=== PATIENT | female | born 1955 | race Caucasian/White ===

== ENCOUNTER → 2016-07-03 | Outpatient (CLI) | payer MEDICAID ==
[2016-07-03 10:54] LABS: Basophils # (auto) 0.1 uL; Basophils % (auto) 1.2 % (0.0-2.0); Eosinophils # (auto) 0.1 uL; Eosinophils % (auto) 3.1 % (0.0-7.0); Hematocrit 40.8 % (36.0-46.0); Hemoglobin 13.7 g/dL (12.2-16.2); Lymphocytes # (auto) 1.7 uL; Lymphocytes % (auto) 37.6 % (10.0-50.0); Mean Corpuscular Hemoglobin 32.3 pg (28.0-32.0); Mean Corpuscular Hgb Conc. 33.6 g/dL (32.0-36.0); Mean Corpuscular Volume 96.1 fL (80.0-100.0); Mean Platelet Volume 9.6 fL (7.4-10.4); Monocytes # (auto) 0.6 uL; Monocytes % (auto) 13.9 % (0.0-12.0); Neutrophils % (auto) 44.2 % (37.0-80.0); Platelet Count (auto) 246 10^3/uL (140-450); Red Cell Distribution Width 13.3 % (11.6-16.0); White Blood Cell 4.6 10^3/uL (4.4-10.8)
[2016-07-03 11:26] LABS: Albumin 3.5 g/dL (3.4-5.0); BUN/Creatinine Ratio 20.9; Bilirubin, Total 0.6 mg/dL (0.2-1.0); Calcium 9.2 mg/dL (8.5-10.1); Potassium 4.5 mmol/L (3.5-5.1); Total Protein 7.4 g/dL (6.4-8.2)
== END | disposition home or self-care (01) ==
LOC: LAB 10:13
DX: I10 Essential (primary) hypertension (principal); M25.50 Pain in unspecified joint; D64.9 Anemia, unspecified; M06.9 Rheumatoid arthritis, unspecified; Z79.899 Other long term (current) drug therapy
CPT/HCPCS: 36415; 80053; 85025; 85652; 86141

== ENCOUNTER → 2016-11-27 | Outpatient (CLI) | payer MEDICAID ==
[2016-11-27 14:39] LABS: Basophils # (auto) 0 uL; Basophils % (auto) 0.7 % (0.0-2.0); CONDITION Y; Eosinophils # (auto) 0.1 uL; Hematocrit 40.9 % (36.0-46.0); Hemoglobin 13.8 g/dL (12.2-16.2); Lymphocytes # (auto) 1.2 uL; Lymphocytes % (auto) 21.7 % (10.0-50.0); Mean Corpuscular Hemoglobin 32.4 pg (28.0-32.0); Mean Corpuscular Hgb Conc. 33.8 g/dL (32.0-36.0); Mean Corpuscular Volume 95.7 fL (80.0-100.0); Mean Platelet Volume 8.3 fL (7.4-10.4); Monocytes # (auto) 0.5 uL; Monocytes % (auto) 9.2 % (0.0-12.0); Neutrophils # (auto) 3.8 uL; Neutrophils % (auto) 66.4 % (37.0-80.0); Platelet Count (auto) 341 10^3/uL (140-450); Red Cell Distribution Width 13.4 % (11.6-16.0); White Blood Cell 5.7 10^3/uL (4.4-10.8)
[2016-11-27 15:13] LABS: Albumin 3.6 g/dL (3.4-5.0); BUN/Creatinine Ratio 21.5; Bilirubin, Total 0.6 mg/dL (0.2-1.0); Calcium 9.1 mg/dL (8.5-10.1); Potassium 4.2 mmol/L (3.5-5.1); Total Protein 7.7 g/dL (6.4-8.2)
== END | disposition home or self-care (01) ==
LOC: LAB 14:26
DX: I10 Essential (primary) hypertension (principal); M06.9 Rheumatoid arthritis, unspecified; M25.50 Pain in unspecified joint; D64.9 Anemia, unspecified; Z79.899 Other long term (current) drug therapy
CPT/HCPCS: 36415; 80053; 85025; 85652; 86141

== ENCOUNTER → 2017-04-12 | Outpatient (CLI) | payer MEDICAID ==
[2017-04-12 12:12] LABS: Basophils # (auto) 0 uL; Basophils % (auto) 0.7 % (0.0-2.0); Eosinophils # (auto) 0.1 uL; Eosinophils % (auto) 2.3 % (0.0-7.0); Hematocrit 45.5 % (36.0-46.0); Hemoglobin 14.9 g/dL (12.2-16.2); Lymphocytes % (auto) 15.1 % (10.0-50.0); Mean Corpuscular Hemoglobin 31.8 pg (28.0-32.0); Mean Corpuscular Hgb Conc. 32.7 g/dL (32.0-36.0); Mean Corpuscular Volume 97.1 fL (80.0-100.0); Mean Platelet Volume 8.4 fL (6.9-10.8); Monocytes # (auto) 0.7 uL; Monocytes % (auto) 10.8 % (0.0-12.0); Neutrophils # (auto) 4.5 uL; Neutrophils % (auto) 71.1 % (37.0-80.0); Nucleated Red Blood Cells % 0.1 %; Platelet Count (auto) 298 10^3/uL (140-450); Red Cell Distribution Width 13.6 % (11.8-14.3); White Blood Cell 6.4 10^3/uL (4.4-10.8)
[2017-04-12 12:25] LABS: Albumin 3.7 g/dL (3.4-5.0); BUN/Creatinine Ratio 22.8; Bilirubin, Total 0.7 mg/dL (0.2-1.0); Calcium 8.9 mg/dL (8.5-10.1); Potassium 4.4 mmol/L (3.5-5.1); Total Protein 7.9 g/dL (6.4-8.2)
[2017-04-12 13:04] LABS: RBC Morphology Normal
[2017-04-12 13:05] LABS: Large Platelets FEW; Platelet Estimate Adequa
== END | disposition home or self-care (01) ==
LOC: LAB 11:46
DX: I10 Essential (primary) hypertension (principal); M06.9 Rheumatoid arthritis, unspecified; D64.9 Anemia, unspecified
CPT/HCPCS: 36415; 80053; 85025; 85652; 86141

== ENCOUNTER → 2017-10-29 | Outpatient (CLI) | payer MEDICAID ==
[2017-10-29 12:25] LABS: Basophils # (auto) 0.1 uL; Basophils % (auto) 0.9 % (0.0-2.0); Eosinophils # (auto) 0.1 uL; Hematocrit 44.3 % (36.0-46.0); Hemoglobin 14.5 g/dL (12.2-16.2); Lymphocytes # (auto) 0.9 uL; Lymphocytes % (auto) 15.4 % (10.0-50.0); Mean Corpuscular Hemoglobin 31.8 pg (28.0-32.0); Mean Corpuscular Hgb Conc. 32.8 g/dL (32.0-36.0); Mean Corpuscular Volume 96.9 fL (80.0-100.0); Monocytes # (auto) 0.6 uL; Monocytes % (auto) 10.1 % (0.0-12.0); Neutrophils # (auto) 4.3 uL; Neutrophils % (auto) 71.6 % (37.0-80.0); Nucleated Red Blood Cells % 0.1 %; Platelet Count (auto) 322 10^3/uL (140-450); Red Blood Cells 4.57 10^6/uL (4.0-5.20); Red Cell Distribution Width 13.8 % (11.8-14.3)
[2017-10-29 13:05] LABS: Albumin 3.6 g/dL (3.4-5.0); BUN/Creatinine Ratio 18.9; Bilirubin, Total 0.6 mg/dL (0.2-1.0); Calcium 9.3 mg/dL (8.5-10.1); Potassium 4.5 mmol/L (3.5-5.1); Total Protein 7.8 g/dL (6.4-8.2)
== END | disposition home or self-care (01) ==
LOC: LAB 11:36
PROVIDERS: ATTEND Physician Assistant
DX: I12.9 Hypertensive chronic kidney disease with stage 1 through stage 4 chronic kidney disease, or unspecified chronic kidney disease (principal); N18.2 Chronic kidney disease, stage 2 (mild); M19.90 Unspecified osteoarthritis, unspecified site; M05.40 Rheumatoid myopathy with rheumatoid arthritis of unspecified site; M06.9 Rheumatoid arthritis, unspecified; R63.5 Abnormal weight gain; G25.0 Essential tremor; Z79.899 Other long term (current) drug therapy
CPT/HCPCS: 36415; 80053; 80061; 83036; 84443; 85025

== ENCOUNTER → 2018-02-19 | Outpatient (CLI) | payer MEDICAID ==
[2018-02-19 16:35] LABS: Basophils # (auto) 0 uL; Basophils % (auto) 0.7 % (0.0-2.0); Eosinophils # (auto) 0.1 uL; Eosinophils % (auto) 2.1 % (0.0-7.0); Hematocrit 47.1 % (36.0-46.0); Hemoglobin 15.7 g/dL (12.2-16.2); Lymphocytes # (auto) 0.6 uL; Lymphocytes % (auto) 11.2 % (10.0-50.0); Mean Corpuscular Hgb Conc. 33.4 g/dL (32.0-36.0); Monocytes # (auto) 0.6 uL; Monocytes % (auto) 10.9 % (0.0-12.0); Neutrophils # (auto) 4.2 uL; Neutrophils % (auto) 75.1 % (37.0-80.0); Nucleated Red Blood Cells % 0.1 %; Platelet Count (auto) 307 10^3/uL (140-450); Red Blood Cells 4.76 10^6/uL (4.0-5.20); Red Cell Distribution Width 14.3 % (11.8-14.3); Urine Blood Negative /uL (Negative); Urine Specific Gravity 1.028 (1.001-1.035); White Blood Cell 5.6 10^3/uL (4.4-10.8)
== END | disposition home or self-care (01) ==
LOC: Rad HDHVI 14:55
PROVIDERS: ATTEND Internal Medicine Cardiovascular Disease
DX: I10 Essential (primary) hypertension (principal); J44.9 Chronic obstructive pulmonary disease, unspecified; E78.5 Hyperlipidemia, unspecified; K74.1 Hepatic sclerosis; E03.9 Hypothyroidism, unspecified; E55.9 Vitamin D deficiency, unspecified; E11.9 Type 2 diabetes mellitus without complications; N39.0 Urinary tract infection, site not specified
CPT/HCPCS: 36415; 81003; 82306; 83036; 85025; 93306

== ENCOUNTER → 2018-02-24 | Outpatient (CLI) | payer MEDICAID ==
[~2018-02-24] VITALS: Ht 160 cm; Wt 125.2 kg
[~2018-02-24] MED LIST: ADENOSINE 105 MG in GIVE UN-DILUTED 0 ML IV ONE; ADENOSINE 90 MG/30 ML INJ IV ONE
== END | disposition home or self-care (01) ==
LOC: Rad HDHVI 10:06
PROVIDERS: ATTEND Internal Medicine Cardiovascular Disease
DX: I10 Essential (primary) hypertension (principal); E78.00 Pure hypercholesterolemia, unspecified
CPT/HCPCS: 78452; 93005; 96374; 96375; A9500; J0153

== ENCOUNTER → 2018-04-03 | Outpatient (CLI) | payer MEDICAID | END | disposition home or self-care (01) | LOC: LAB 13:57 | PROVIDERS: ATTEND Internal Medicine Cardiovascular Disease | DX: E03.9 Hypothyroidism, unspecified (principal) | CPT/HCPCS: 36415; 84439; 84443 ==

== ENCOUNTER → 2018-07-22 | Outpatient (CLI) | payer MEDICAID | END | disposition home or self-care (01) | LOC: LAB 15:15 | PROVIDERS: ATTEND Internal Medicine Cardiovascular Disease | DX: R94.4 Abnormal results of kidney function studies (principal) | CPT/HCPCS: 36415; 82565 ==

== ENCOUNTER → 2018-07-23 | Outpatient (CLI) | payer MEDICAID ==
[~2018-07-23] MED LIST changes: -ADENOSINE 105 MG in GIVE UN-DILUTED 0 ML IV ONE; -ADENOSINE 90 MG/30 ML INJ IV ONE; +IOHEXOL 350 MG/ML 100ML IJ ONE
[2018-07-23 15:23] VITALS: BP 127/80
--- NOTE | 2018-07-23 15:23 | NUR ---
CHF PT ARRIVED TO THE CHF CLINIC FOR CT OF THE ABDOMEN. PT ALERT AND ORIENTED X 3 . O DISTRESS, VITAL SIGNS OBTAINED
--- NOTE | 2018-07-23 15:35 | NUR ---
IV insertion IV access obtained, via clean sterile technique by inserting 20 gauge catheter at after attempt(s). IV secured properly. No trauma to site. Patient tolerated procedure well.
--- NOTE | 2018-07-23 15:40 | NUR ---
IV removal IV DC'd with sterile technique, catheter fully intact. Pressure dressing applied to site. Patient tolerated procedure well. Discharged with aftercare instructions per MD. NOTE:
[2018-07-23 15:45] VITALS: BP 142/77
--- NOTE | 2018-07-23 15:45 | NUR ---
Discharge Instructions See e-MAR for any mediations given with this visit. Patient education given on disease process. Patient verbalized understanding. Previous labs reviewed. Patient discharged in stable condition with after care instructions and follow up appointment.
== END | disposition home or self-care (01) ==
LOC: Rad HDHVI 15:17
PROVIDERS: ATTEND Internal Medicine Cardiovascular Disease
DX: R10.9 Unspecified abdominal pain (principal)
CPT/HCPCS: 74177; G0463; Q9967

== ENCOUNTER → 2018-10-10 | Outpatient (CLI) | payer MEDICAID ==
[2018-10-10 12:36] LABS: Basophils # (auto) 0 uL; Basophils % (auto) 0.8 % (0.0-2.0); Eosinophils # (auto) 0.2 uL; Hematocrit 44.7 % (36.0-46.0); Hemoglobin 14.7 g/dL (12.2-16.2); Lymphocytes # (auto) 0.8 uL; Lymphocytes % (auto) 16.2 % (10.0-50.0); Mean Corpuscular Hemoglobin 32.4 pg (28.0-32.0); Mean Corpuscular Hgb Conc. 32.8 g/dL (32.0-36.0); Mean Corpuscular Volume 98.7 fL (80.0-100.0); Monocytes # (auto) 0.6 uL; Monocytes % (auto) 11.3 % (0.0-12.0); Neutrophils # (auto) 3.6 uL; Neutrophils % (auto) 68.7 % (37.0-80.0); Platelet Count (auto) 305 10^3/uL (140-450); Red Blood Cells 4.53 10^6/uL (4.0-5.20); Red Cell Distribution Width 13.1 % (11.8-14.3); White Blood Cell 5.3 10^3/uL (4.4-10.8)
[2018-10-10 13:50] LABS: Potassium 4.6 mmol/L (3.5-5.1)
[2018-10-10 14:09] LABS: Albumin 3.4 g/dL (3.4-5.0); BUN/Creatinine Ratio 24.5; Bilirubin, Total 0.5 mg/dL (0.2-1.0); Calcium 9.2 mg/dL (8.5-10.1); Total Protein 7.3 g/dL (6.4-8.2)
== END | disposition home or self-care (01) ==
LOC: LAB 12:08
PROVIDERS: ATTEND Physician Assistant
DX: I12.9 Hypertensive chronic kidney disease with stage 1 through stage 4 chronic kidney disease, or unspecified chronic kidney disease (principal); E11.22 Type 2 diabetes mellitus with diabetic chronic kidney disease; N18.2 Chronic kidney disease, stage 2 (mild); M06.9 Rheumatoid arthritis, unspecified; E78.00 Pure hypercholesterolemia, unspecified
CPT/HCPCS: 36415; 80053; 80061; 85025

== ENCOUNTER → 2018-11-05 | Outpatient (CLI) | payer MEDICAID | END | disposition home or self-care (01) | LOC: LAB 10:34 | PROVIDERS: ATTEND Internal Medicine Cardiovascular Disease | DX: E11.9 Type 2 diabetes mellitus without complications (principal) | CPT/HCPCS: 36415; 83036 ==

== ENCOUNTER 2019-03-13 14:37 | Inpatient (IN) | payer MEDICARE, MEDICAID ==
[~2019-03-13] VITALS: Ht 160 cm; Wt 117.8 kg
[2019-03-13] MEDS ORDERED: HYDROcodone-ACET 5/325MG TAB PO ONE (16:00)
[2019-03-13] MEDS ORDERED: SODIUM CHLORIDE 0.9% 1,000 ML IVB ONE (17:11)
[2019-03-13] MEDS ORDERED: cefTRIAXone 1GM/50ML D5W 50 ML IV ONE (17:15)
[2019-03-13 18:10] LABS: Albumin 3.4 g/dL (3.4-5.0); Magnesium 1.9 mg/dL (1.6-2.6)
[2019-03-13] MEDS ORDERED: ACETAMINOPHEN 325 MG TAB PO ONE (18:15)
[2019-03-13 18:20] LABS: Hematocrit 44.6 % (36.0-46.0); Hemoglobin 14.6 g/dL (12.2-16.2); Mean Corpuscular Hemoglobin 32.3 pg (28.0-32.0); Mean Corpuscular Hgb Conc. 32.7 g/dL (32.0-36.0); Mean Corpuscular Volume 98.8 fL (80.0-100.0); Platelet Count (auto) 294 10^3/uL (140-450); Red Blood Cells 4.51 10^6/uL (4.0-5.20); Red Cell Distribution Width 13.3 % (11.8-14.3); White Blood Cell 18.1 10^3/uL (4.4-10.8)
[2019-03-13 18:22] LABS: BUN/Creatinine Ratio 20.6; Basophils % (manual) 0 (0.0-2.0); Bilirubin, Total 0.6 mg/dL (0.2-1.0); Blast Cells 0; Eosinophils % (manual) 0 (0-7); Metamyelocytes % 0; Myelocytes % 0; Promyelocytes % 0; Reactive Lymphocytes 0; Total Protein 7.6 g/dL (6.4-8.2)
[2019-03-13 18:30] LABS: Band Neutrophils % (manual) 6; Lymphocytes % (manual) 1 (10.0-50.0); Monocytes % (manual) 4 (0-12)
[2019-03-13] MEDS ORDERED: DEXTROSE (50%) 50ML SYRG IV PRN (22:15)
[2019-03-13] MEDS ORDERED: PATIENTS OWN MEDICATION TD SCH (22:15)
[2019-03-13] MEDS ORDERED: FUROSEMIDE 40 MG/4 ML VIAL IV ONE (22:15)
[2019-03-13] MEDS ORDERED: POTASSIUM CHL 20 Meq TABLET PO ONE (22:15)
[2019-03-13] MEDS: CLINDAMYCIN 600MG IV 50 ML IV SCH (22:28)
[2019-03-13] MEDS: TOLTERODINE TARTRATE 1 MG TAB PO SCH (22:45)
[2019-03-13] MEDS: LEVOFLOXACIN 500MG 100 ML IV SCH (22:46)
[2019-03-14] VITALS (7 sets, daily range): BP systolic 103–140; BP diastolic 57–74
--- NOTE | 2019-03-14 00:08 | NUR ---
MS admit from ER KENAN FRANKLIN admitted to tele/MS after SBAR received. Patient oriented to Melania Bowers, primary RN, unit, room, bed, and unit policies regarding patient care and visiting hours. Patient weighed by bedscale and encouraged to call if they need something. All questions and concerns addressed, patient verbalized understanding.
[2019-03-14] MEDS: traZODone HCL 50 MG TAB PO PRN ×2 (01:36→21:43)
[2019-03-14] MEDS: HYDROcodone-ACET 5/325MG TAB PO PRN ×2 (01:36→15:04)
[2019-03-14] MEDS: CLINDAMYCIN 600MG IV 50 ML IV SCH ×3 (06:27→21:43)
[2019-03-14] MEDS: ACCU-CHEK COMFORT CURVE STRIP VI SCH ×3 (06:28→21:51)
[2019-03-14] MEDS: InsuLIN REG 1unit/0.01ml Soln (100units/ml) SC SCH ×3 (06:32→21:50)
[2019-03-14] MEDS ORDERED: PATIENTS OWN MEDICATION PO SCH (10:00)
[2019-03-14] MEDS: LEVOFLOXACIN 500MG 100 ML IV SCH (10:40)
[2019-03-14] MEDS: FOLIC ACID 1 MG TAB PO SCH (10:40)
[2019-03-14] MEDS: [UNRECOGNIZED DRUG - OTHER] PO SCH (11:12)
[2019-03-14] MEDS: XELJANZ 5 MG PO SCH ×2 (11:13→21:38)
[2019-03-14] MEDS: TOLTERODINE TARTRATE 1 MG TAB PO SCH ×2 (11:15→21:41)
[2019-03-14] MEDS: PANTOPRAZOLE 40 MG TAB PO SCH (11:16)
[2019-03-14] MEDS: metFORMIN HYDROCHLORIDE 500 MG TAB PO SCH (11:16)
[2019-03-14] MEDS: BENAZEPRIL HCL 10 MG TAB PO SCH ×2 (11:16→21:37)
[2019-03-14] MEDS ORDERED: PITA4TAB PO (15:22)
[2019-03-14] MEDS ORDERED: TOFA5TAB PO (15:22)
[2019-03-14] MEDS ORDERED: MILN50TA PO (15:22)
[2019-03-14] MEDS ORDERED: ESCI20TA PO (15:22)
[2019-03-14] MEDS ORDERED: LEVO125T7 PO (15:22)
--- NOTE | 2019-03-14 19:30 | NUR ---
OPENING SHIFT NOTE RECEIVED PATIENT REPORT FROM DAY SHIFT RN. PATIENT SITTING UP IN BED WITH FAMILY AT BEDSIDE. PATIENT IS A/0 X4. NO S/S OF DISTRESS OR SOB. NO PAIN NOTED AT THIS TIME. PATIENT STATED SHE DOES NOT AMBULATE. SHE IS ABLE TO STAND WITH ASSISTANCE. UPDATED PATIENT ON POC, VERBALIZED UNDERSTANDING. BED LOCKED IN LOWEST POSITION, SIDERAILS UP X2, CALL LIGHT WITHIN REACH. WILL CONTINUE TO MONITOR Q1H AND PRN.
[2019-03-14] MEDS: PRAMIPEXOLE DIHYDROCHLORIDE MO 0.25 MG TAB PO SCH (21:41)
[2019-03-15] MEDS: traZODone HCL 50 MG TAB PO PRN ×2 (00:06→23:12)
[2019-03-15] MEDS: HYDROcodone-ACET 5/325MG TAB PO PRN ×2 (00:07→23:12)
[2019-03-15 05:46] VITALS: BP 111/69
[2019-03-15] MEDS: CLINDAMYCIN 600MG IV 50 ML IV SCH ×3 (06:18→22:55)
[2019-03-15] MEDS: ACCU-CHEK COMFORT CURVE STRIP VI SCH ×4 (06:29→22:00)
[2019-03-15] MEDS: InsuLIN REG 1unit/0.01ml Soln (100units/ml) SC SCH ×4 (06:30→22:00)
[2019-03-15 09:00] VITALS: BP 119/67
[2019-03-15] MEDS: XELJANZ 5 MG PO SCH ×2 (10:32→22:56)
[2019-03-15] MEDS: [UNRECOGNIZED DRUG - OTHER] PO SCH (10:33)
[2019-03-15] MEDS: CITALOPRAM HYDROBR 20 MG TAB PO SCH (10:33)
[2019-03-15] MEDS: LEVOFLOXACIN 500MG 100 ML IV SCH (10:33)
[2019-03-15] MEDS: FOLIC ACID 1 MG TAB PO SCH (10:33)
[2019-03-15] MEDS: TOLTERODINE TARTRATE 1 MG TAB PO SCH ×2 (10:34→22:54)
[2019-03-15] MEDS: metFORMIN HYDROCHLORIDE 500 MG TAB PO SCH (10:34)
[2019-03-15] MEDS: PANTOPRAZOLE 40 MG TAB PO SCH (10:34)
[2019-03-15] MEDS: BENAZEPRIL HCL 10 MG TAB PO SCH ×2 (10:40→22:00)
[2019-03-15 13:00] VITALS: BP 109/67
[2019-03-15 17:00] VITALS: BP 119/70
[2019-03-15 20:00] VITALS: BP 114/60
[2019-03-15 22:00] VITALS: BP 114/60
[2019-03-15] MEDS: PRAMIPEXOLE DIHYDROCHLORIDE MO 0.25 MG TAB PO SCH (22:54)
[2019-03-16 05:52] VITALS: BP 118/52
[2019-03-16] MEDS: CLINDAMYCIN 600MG IV 50 ML IV SCH ×3 (06:32→22:17)
[2019-03-16] MEDS: ACCU-CHEK COMFORT CURVE STRIP VI SCH ×4 (06:39→22:00)
[2019-03-16] MEDS: InsuLIN REG 1unit/0.01ml Soln (100units/ml) SC SCH ×4 (06:39→22:00)
[2019-03-16 09:00] VITALS: BP 126/61
--- NOTE | 2019-03-16 09:07 | NUR ---
PT SEEN BY DR. MIRANDA PER DR. MIRANDA HE WILL DISCHARGE THE PT WITH ORAL ANTIBIOTIC, PT IS AWARE.
[2019-03-16] MEDS: [UNRECOGNIZED DRUG - OTHER] PO SCH (10:00)
[2019-03-16] MEDS: XELJANZ 5 MG PO SCH ×2 (10:00→22:19)
[2019-03-16] MEDS: FOLIC ACID 1 MG TAB PO SCH (10:02)
[2019-03-16] MEDS: CITALOPRAM HYDROBR 20 MG TAB PO SCH (10:02)
[2019-03-16] MEDS: LEVOFLOXACIN 500MG 100 ML IV SCH (10:02)
[2019-03-16] MEDS: TOLTERODINE TARTRATE 1 MG TAB PO SCH ×2 (10:03→22:00)
[2019-03-16] MEDS: metFORMIN HYDROCHLORIDE 500 MG TAB PO SCH (10:03)
[2019-03-16] MEDS: PANTOPRAZOLE 40 MG TAB PO SCH (10:03)
[2019-03-16] MEDS: BENAZEPRIL HCL 10 MG TAB PO SCH ×2 (10:04→22:00)
[2019-03-16 13:00] VITALS: BP 114/69
[2019-03-16] MEDS: HYDROcodone-ACET 5/325MG TAB PO PRN ×2 (13:30→22:37)
--- NOTE | 2019-03-16 14:42 | NUR ---
DR. MIRANDA NOTIFIED, PT IS ASKING IF SHE IS GOING HOME TODAY, NO ORDER RECEIVED, WAITING FOR CALL BACK.
[2019-03-16 17:00] VITALS: BP 113/68
--- NOTE | 2019-03-16 18:04 | NUR ---
DR. MIRANDA ORDERED TO HOLD DISCHARGE. PT MADE AWARE.
--- NOTE | 2019-03-16 19:45 | NUR ---
Opening Shift Note Assumed care of patient, awake and alert, sitting on wheelchair, visiting. No S/S of distress/SOB or pain. Instructed on POC and to call for assistance PRN, will continue to monitor for changes Q1hr and PRN.
[2019-03-16 22:00] VITALS: BP 116/62
[2019-03-16] MEDS: PRAMIPEXOLE DIHYDROCHLORIDE MO 0.25 MG TAB PO SCH (22:22)
[2019-03-16] MEDS: traZODone HCL 50 MG TAB PO PRN (22:37)
--- NOTE | 2019-03-17 02:00 | NUR ---
Rounds Patient sleeping, respirations even and unlabored on room air. No S/S of distress/SOB or pain. Will continue to monitor changes q1hr and PRN. Call light within reach, in lowest locked position.
--- NOTE | 2019-03-17 02:34 | NUR ---
Rounds Patient awake and alert, assisted patient with bedpan, pt voiding clear yellow urine. Skin care provided to perianal area, area cleansed, dried gently, z guard applied, barrier cloth placed on inner thighs, redness improving. Will continue to monitor changes q1hr and PRN.
[2019-03-17 05:21] VITALS: BP_SYST 113; BP_SYST 177; BP_DIAS 63; BP_DIAS 80
[2019-03-17] MEDS: CLINDAMYCIN 600MG IV 50 ML IV SCH ×2 (06:25→14:09)
[2019-03-17] MEDS: ACCU-CHEK COMFORT CURVE STRIP VI SCH ×3 (06:25→17:00)
[2019-03-17] MEDS: InsuLIN REG 1unit/0.01ml Soln (100units/ml) SC SCH ×3 (06:25→17:00)
[2019-03-17 08:44] VITALS: BP 107/57
[2019-03-17] MEDS ORDERED: SAVELLA 50MG TAB PO SCH (10:00)
[2019-03-17] MEDS: BENAZEPRIL HCL 10 MG TAB PO SCH (10:00)
[2019-03-17] MEDS: TOLTERODINE TARTRATE 1 MG TAB PO SCH (10:11)
[2019-03-17] MEDS: FOLIC ACID 1 MG TAB PO SCH (10:11)
[2019-03-17] MEDS: CITALOPRAM HYDROBR 20 MG TAB PO SCH (10:11)
[2019-03-17] MEDS: PANTOPRAZOLE 40 MG TAB PO SCH (10:11)
[2019-03-17] MEDS: metFORMIN HYDROCHLORIDE 500 MG TAB PO SCH (10:11)
[2019-03-17] MEDS: LEVOFLOXACIN 500MG 100 ML IV SCH (10:12)
[2019-03-17] MEDS: XELJANZ 5 MG PO SCH (10:26)
--- NOTE | 2019-03-17 11:47 | NUR ---
Nutrition Assessment Notes please see attached link for complete assessment Est. Needs ABW 84 [id number] kcal (17-20 kcal/kgBW), 84-92 gms pro (1.0-1.1 gms/kgBW). Will continue to monitor pertinent labs and reassess nutrient need prn Addendum: 03/17/19 at [address] Amended: Links added.
[2019-03-17 13:03] VITALS: BP 132/73
--- NOTE | 2019-03-17 15:03 | NUR ---
DR. MIRANDA ORDERED TO DISCHARGE THE PT, TO CALL IN PRESCRIPTION FOR LEVAQUIN 500MG PO DAILY FOR 5 DAYS.
--- NOTE | 2019-03-17 15:33 | NUR ---
CALLED IN PRESCRIPTION FOR LEVOFLOXACIN 500MG PO DAILY FOR 5 DAYS TO [facility].
[2019-03-17 16:26] VITALS: BP 107/57
[2019-03-17 17:00] VITALS: BP 160/79
--- NOTE | 2019-03-17 17:08 | NUR ---
assessment Patient is a 64 year old female who is alert and oriented. Patients cognitive abilities are intact. Prior to admission patient lived home alone and functioned with assistance. Per patient she will return home to her prior living arrangements post discharge and her sig other and caregiver Boo will transport her home. Patients PCP is Dr Figueroa. Patient informed me she has a wheelchair and fww for home use. Patient informed me she feels safe returning home on discharge. Patient may benefit from home health for PT on discharge. I informed patient she has a right to speak to a director of social media marketing regarding all care. I informed patient she has a right to participate in any and all discharge planning. Patient does not have a POA and advanced directive. I have offered patient information on POA and advanced directives. I informed the patient the advantages and benefits of having an Advanced Directive. Patient verbalized understanding and agreed to discharge plan. Addendum: 03/17/19 at 1710 by Ebony GALLEGOS Amended: Links added.
--- NOTE | 2019-03-17 18:50 | NUR ---
Discharge instructions given as ordered. Encourage to follow up with Dr. Figueroa in 1 week, unable to make an appointment office is close at the time of discharge, pt verbalized she will make her own appointment as instructed. All questions and concerns addressed. Patient verbalized understanding. Medication reconciliation form completed and copy given to patient. Home medications held in Pharmacy returned to patient. IV removed with catheter intact, pressure dressing applied. Patient taken to vehicle via wheelchair with all personal belongings, accompanied by staff and family member. No distress noted at time of departure.
== END 2019-03-17 18:50 | disposition home or self-care (01) | DRG 872 ==
LOC: EDBD 14:37 → ER 14:49 → OVERFLOW 14:50 → WEST WING 23:29
PROVIDERS: ADMIT Internal Medicine Cardiovascular Disease; ATTEND Internal Medicine Cardiovascular Disease
DX: A41.9 Sepsis, unspecified organism (principal); L03.116 Cellulitis of left lower limb; Z68.42 Body mass index [BMI] 45.0-49.9, adult; I89.0 Lymphedema, not elsewhere classified; Z88.0 Allergy status to penicillin; Z88.2 Allergy status to sulfonamides; Z88.8 Allergy status to other drugs, medicaments and biological substances; E11.9 Type 2 diabetes mellitus without complications; E66.9 Obesity, unspecified; I10 Essential (primary) hypertension; M19.90 Unspecified osteoarthritis, unspecified site; Z82.49 Family history of ischemic heart disease and other diseases of the circulatory system; Z83.3 Family history of diabetes mellitus; F32.9 Major depressive disorder, single episode, unspecified; F41.9 Anxiety disorder, unspecified; M06.9 Rheumatoid arthritis, unspecified
CPT/HCPCS: 36415; 71045; 80053; 82962; 83735; 85007; 85027; 93971; 96365; 96375; G0378; J0696; J1815; J1956; J3490

== ENCOUNTER → 2019-06-01 | Outpatient (CLI) | payer MEDICARE, MEDICAID ==
[~2019-06-01] MED LIST changes: +CHOL20007 PO; +CYA100I PO; +ESCI20TA PO; +ESOM40CA39 PO; +FOLI1TAB6 PO; +HYDR-4833 PO; -IOHEXOL 350 MG/ML 100ML IJ ONE; +LEVO125T7 PO; +MILN50TA PO; +PITA4TAB PO; +PRA25T PO; +PREN-96 PO; +TEMA15CA91 PO; +TOFA5TAB PO; +TOLT2CAP7 PO; +TRIA75TA55 PO
[2019-06-01 15:59] LABS: Hematocrit 49.1 % (36.0-46.0); Hemoglobin 15.9 g/dL (12.2-16.2); Mean Corpuscular Hemoglobin 32.3 pg (28.0-32.0); Mean Corpuscular Hgb Conc. 32.3 g/dL (32.0-36.0); Mean Corpuscular Volume 99.9 fL (80.0-100.0); Platelet Count (auto) 396 10^3/uL (140-450); Red Blood Cells 4.91 10^6/uL (4.0-5.20); Red Cell Distribution Width 14.6 % (11.8-14.3); White Blood Cell 7.2 10^3/uL (4.4-10.8)
[2019-06-01 16:05] LABS: Basophils % (manual) 0 (0.0-2.0); Blast Cells 0; Eosinophils % (manual) 0 (0-7); Promyelocytes % 0; Reactive Lymphocytes 0
[2019-06-01 16:24] LABS: Anion Gap 10 (5-15); BUN/Creatinine Ratio 18.8; Blood Urea Nitrogen 24 mg/dL (7-18); Carbon Dioxide 24 mmol/L (21-32); Chloride 103 mmol/L (98-107); GFR African American 54 mL/min; GFR Non-African American 44 mL/min; Glucose 191 mg/dL (74-106); Potassium 3.9 mmol/L (3.5-5.1); Sodium 137 mmol/L (136-145)
[2019-06-01 18:43] LABS: Band Neutrophils % (manual) 3; Lymphocytes % (manual) 14 (10.0-50.0); Metamyelocytes % 2; Monocytes % (manual) 11 (0-12); Myelocytes % 1
== END | disposition home or self-care (01) ==
LOC: Rad HDHVI 15:07
PROVIDERS: ATTEND Internal Medicine Cardiovascular Disease
DX: I70.0 Atherosclerosis of aorta (principal); R06.02 Shortness of breath; D64.9 Anemia, unspecified
CPT/HCPCS: 36415; 71046; 80048; 85007; 85027

== ENCOUNTER → 2019-10-15 | Outpatient (CLI) | payer MEDICARE, MEDICAID ==
[~2019-10-15] MED LIST changes: -PRA25T PO; +PRAM0.252 PO
== END | disposition home or self-care (01) ==
LOC: Rad HDHVI 15:07
PROVIDERS: ATTEND Internal Medicine Cardiovascular Disease
DX: I10 Essential (primary) hypertension (principal); R06.02 Shortness of breath; R00.2 Palpitations
CPT/HCPCS: 93306

== ENCOUNTER → 2019-10-27 | Outpatient (CLI) | payer MEDICARE, MEDICAID ==
[~2019-10-27] VITALS: Ht 160 cm; Wt 117.9 kg
[~2019-10-27] MED LIST changes: +ADENOSINE 90 MG/30 ML INJ IV ONE; +ADENOSINE 99 MG in GIVE UN-DILUTED 0 ML IV ONE
== END | disposition home or self-care (01) ==
LOC: Rad HDHVI 13:03
PROVIDERS: ATTEND Internal Medicine Cardiovascular Disease
DX: I10 Essential (primary) hypertension (principal); E11.9 Type 2 diabetes mellitus without complications; E78.00 Pure hypercholesterolemia, unspecified; Z82.49 Family history of ischemic heart disease and other diseases of the circulatory system
CPT/HCPCS: 78452; 93005; 96374; 96375; A9500; J0153

== ENCOUNTER → 2020-02-24 | Outpatient (CLI) | payer MEDICARE, MEDICAID ==
[~2020-02-24] MED LIST changes: -ADENOSINE 90 MG/30 ML INJ IV ONE; -ADENOSINE 99 MG in GIVE UN-DILUTED 0 ML IV ONE
[2020-02-24 08:31] LABS: Albumin 3.5 g/dL (3.4-5.0); Calcium 9.1 mg/dL (8.5-10.1); Potassium 3.9 mmol/L (3.5-5.1)
[2020-02-24 08:36] LABS: BUN/Creatinine Ratio 28.6; Bilirubin, Total 0.5 mg/dL (0.2-1.0); Total Protein 7.1 g/dL (6.4-8.2)
[2020-02-24 08:37] LABS: Basophils # (auto) 0 10 ^3/uL (0-0.2); Basophils % (auto) 0.7 % (0.0-2.0); Eosinophils # (auto) 0.3 10 ^3/uL (0-0.8); Eosinophils % (auto) 4.9 % (0.0-7.0); Hematocrit 42.6 % (36.0-46.0); Hemoglobin 14.1 g/dL (12.2-16.2); Lymphocytes # (auto) 1.1 10 ^3/uL (0.4-5.4); Lymphocytes % (auto) 19.3 % (10.0-50.0); Mean Corpuscular Hemoglobin 31.8 pg (28.0-32.0); Mean Corpuscular Hgb Conc. 33.1 g/dL (32.0-36.0); Mean Corpuscular Volume 96.1 fL (80.0-100.0); Monocytes # (auto) 0.8 10 ^3/uL (0-1.3); Monocytes % (auto) 14.7 % (0.0-12.0); Neutrophils # (auto) 3.4 10 ^3/uL (1.6-8.6); Neutrophils % (auto) 60.4 % (37.0-80.0); Nucleated Red Blood Cells % 0.1 %; Platelet Count (auto) 284 10^3/uL (140-450); Red Blood Cells 4.44 10^6/uL (4.0-5.20); Red Cell Distribution Width 13.7 % (11.8-14.3); White Blood Cell 5.7 10^3/uL (4.4-10.8)
== END | disposition home or self-care (01) ==
LOC: LAB 07:39
PROVIDERS: ATTEND Physician Assistant
DX: I12.9 Hypertensive chronic kidney disease with stage 1 through stage 4 chronic kidney disease, or unspecified chronic kidney disease (principal); N18.2 Chronic kidney disease, stage 2 (mild); E66.01 Morbid (severe) obesity due to excess calories; R73.9 Hyperglycemia, unspecified; M06.9 Rheumatoid arthritis, unspecified
CPT/HCPCS: 36415; 80053; 80061; 83036; 85025

== ENCOUNTER 2020-04-17 16:01 | Inpatient (IN) | payer MEDICARE, MEDICAID ==
[~2020-04-17] VITALS: Ht 160 cm; Wt 101.6 kg
[2020-04-17 18:41] LABS: Basophils # (auto) 0 10 ^3/uL (0-0.2); Basophils % (auto) 0.1 % (0.0-2.0); Eosinophils # (auto) 0 10 ^3/uL (0-0.8); Hematocrit 46.3 % (36.0-46.0); Hemoglobin 15.3 g/dL (12.2-16.2); Lymphocytes # (auto) 0.3 10 ^3/uL (0.4-5.4); Lymphocytes % (auto) 1.9 % (10.0-50.0); Mean Corpuscular Volume 96.9 fL (80.0-100.0); Monocytes # (auto) 0.9 10 ^3/uL (0-1.3); Monocytes % (auto) 6.4 % (0.0-12.0); Neutrophils # (auto) 12.4 10 ^3/uL (1.6-8.6); Neutrophils % (auto) 91.6 % (37.0-80.0); Platelet Count (auto) 361 10^3/uL (140-450); Red Blood Cells 4.77 10^6/uL (4.0-5.20); Red Cell Distribution Width 14.2 % (11.8-14.3); White Blood Cell 13.5 10^3/uL (4.4-10.8)
[2020-04-17 19:00] LABS: INR 1.09 (0.9-1.15); Partial Thromboplastin Time 27.4 sec (23.0-31.2)
[2020-04-17 19:06] LABS: Albumin 2.8 g/dL (3.4-5.0); BUN/Creatinine Ratio 27.9; Calcium 9.7 mg/dL (8.5-10.1); Magnesium 2.2 mg/dL (1.6-2.6); Potassium 4.9 mmol/L (3.5-5.1)
[2020-04-17 19:11] LABS: Bilirubin, Total 0.6 mg/dL (0.2-1.0); Total Protein 7.5 g/dL (6.4-8.2)
[2020-04-17] MEDS ORDERED: SODIUM CHLORIDE 0.9% 1,000 ML IV ONE (19:30)
[2020-04-17] MEDS ORDERED: DexAMETHasone SOD PHOS 10MG/1ML VIAL INJ IV ONE (19:30)
[2020-04-17] MEDS ORDERED: DOXYCYCLINE 100MG/250ML 250 ML IV ONE (19:30)
[2020-04-17] MEDS ORDERED: IOHEXOL 350 MG/ML 100ML IJ ONE ×2 (20:00→20:41)
[2020-04-17] MEDS ORDERED: ENOXAPARIN SOD 100 MG/1 ML SYRINGE SC ONE (20:45)
[2020-04-17] MEDS ORDERED: AZITHROMYCIN 500MG/ 250ML 250 ML IV ONE (21:30)
[2020-04-17] MEDS ORDERED: REMDESIVIR PER PHARMACY 0 ML IV SCH (22:45)
[2020-04-17] MEDS ORDERED: MORPHINE SULF INJ 2 MG/ML SYRINGE 1ML IV PRN (22:45)
[2020-04-17] MEDS ORDERED: NITROGLYCERIN 0.4 MG SL TAB SL PRN (22:45)
[2020-04-17 23:36] LABS: Lactic Acid w/Reflex 3.9 mmol/L (0.4-2.0)
[2020-04-18] MEDS ORDERED: LORazepam 0.5 MG TAB PO ONE (00:30)
[2020-04-18 05:46] LABS: Urine Bacteria NONE SEEN /hpf (None Seen); Urine Blood Negative /uL (Negative); Urine Specific Gravity > 1.050 (1.001-1.035); Urine WBC 4 /hpf (0 - 5)
[2020-04-18] MEDS: IPRATROPIUM BROMIDE HFA AER IN SCH ×3 (08:37→22:00)
[2020-04-18] MEDS: BUDESONIDE (INHALATION) 180 MCG IH IN SCH ×2 (08:37→18:18)
[2020-04-18] MEDS: DexAMETHasone SOD PHOS 10MG/1ML VIAL INJ IV SCH (09:45)
[2020-04-18] MEDS: ZINC SULFATE 220mg CAP or TAB PO SCH (09:46)
[2020-04-18] MEDS: POTASSIUM CHL 20 Meq TABLET PO SCH ×2 (09:46→21:36)
[2020-04-18] MEDS: cefTRIAXone 1GM/50ML D5W 50 ML IV SCH (09:46)
[2020-04-18] MEDS: DOXYCYCLINE 100 MG TAB/CAP PO SCH ×2 (09:48→21:36)
[2020-04-18] MEDS: FUROSEMIDE 40 MG TAB PO SCH (09:55)
[2020-04-18] MEDS: ENOXAPARIN SOD 80 MG/0.8ML SYRINGE SC SCH ×2 (09:55→21:37)
[2020-04-18] MEDS ORDERED: ASCORBIC ACID 500 MG TAB PO ONE (10:00)
[2020-04-18] MEDS ORDERED: BUDESONIDE (INHALATION) 0.5 MG/2 ML NEB NEB SCH (10:00)
[2020-04-18] MEDS ORDERED: IPRATROPIUM BROM 0.5 MG/2.5ML INH SOL NEB SCH (10:00)
[2020-04-18] MEDS ORDERED: ERGOCALCIFEROL 50,000 UNIT(1.25MG) CAP PO SCH (10:00)
[2020-04-18] MEDS: CHOLECALCIFEROL (VITD3) 1,000UNIT=25mCg TAB PO SCH (11:06)
[2020-04-18] MEDS ORDERED: REMDESIVIR 200 MG in NS 210ml LOADING DOSE ADULT IV ONE (15:00)
[2020-04-18 18:18] VITALS: BP 122/75
[2020-04-18] MEDS ORDERED: ACETAMINOPHEN 500 MG TAB PO ONE (23:30)
[2020-04-19] MEDS: BUDESONIDE (INHALATION) 180 MCG IH IN SCH ×2 (06:20→18:16)
[2020-04-19] MEDS: IPRATROPIUM BROMIDE HFA AER IN SCH ×3 (06:20→18:16)
[2020-04-19] MEDS: cefTRIAXone 1GM/50ML D5W 50 ML IV SCH (10:00)
[2020-04-19 10:16] LABS: Albumin 2.3 g/dL (3.4-5.0); Calcium 9.2 mg/dL (8.5-10.1); Potassium 5.1 mmol/L (3.5-5.1)
[2020-04-19 10:20] LABS: BUN/Creatinine Ratio 36.5; Bilirubin, Total 0.6 mg/dL (0.2-1.0); Total Protein 6.9 g/dL (6.4-8.2)
[2020-04-19] MEDS: FUROSEMIDE 40 MG TAB PO SCH (10:54)
[2020-04-19] MEDS: POTASSIUM CHL 20 Meq TABLET PO SCH ×2 (10:54→21:42)
[2020-04-19] MEDS: ZINC SULFATE 220mg CAP or TAB PO SCH (10:54)
[2020-04-19] MEDS: DexAMETHasone SOD PHOS 10MG/1ML VIAL INJ IV SCH (10:54)
[2020-04-19] MEDS: DOXYCYCLINE 100 MG TAB/CAP PO SCH ×2 (10:58→22:21)
[2020-04-19] MEDS: CHOLECALCIFEROL (VITD3) 1,000UNIT=25mCg TAB PO SCH (10:59)
[2020-04-19] MEDS: ENOXAPARIN SOD 80 MG/0.8ML SYRINGE SC SCH ×2 (10:59→21:42)
[2020-04-19] MEDS: REMDESIVIR 100 MG in SODIUM CHL 0.9% 250 ML IV SCH (16:31)
[2020-04-19 18:16] VITALS: BP 130/90
[2020-04-19] MEDS: HYDROcodone-ACET 10/325MG TAB PO PRN (20:10)
[2020-04-19 23:06] VITALS: BP 115/49
[2020-04-20] MEDS: HYDROcodone-ACET 10/325MG TAB PO PRN ×2 (04:49→20:35)
[2020-04-20 05:11] LABS: Albumin 2.4 g/dL (3.4-5.0); Calcium 9.2 mg/dL (8.5-10.1); Potassium 4.6 mmol/L (3.5-5.1)
[2020-04-20 05:15] LABS: BUN/Creatinine Ratio 41.7; Bilirubin, Total 0.7 mg/dL (0.2-1.0); Total Protein 6.9 g/dL (6.4-8.2)
[2020-04-20] MEDS: IPRATROPIUM BROMIDE HFA AER IN SCH ×3 (06:00→18:50)
[2020-04-20 06:30] VITALS: BP 121/63
[2020-04-20] MEDS: BUDESONIDE (INHALATION) 180 MCG IH IN SCH ×2 (09:45→18:50)
[2020-04-20] MEDS: DexAMETHasone SOD PHOS 10MG/1ML VIAL INJ IV SCH (10:21)
[2020-04-20] MEDS: cefTRIAXone 1GM/50ML D5W 50 ML IV SCH (10:21)
[2020-04-20] MEDS: ZINC SULFATE 220mg CAP or TAB PO SCH (10:21)
[2020-04-20] MEDS: POTASSIUM CHL 20 Meq TABLET PO SCH ×2 (10:21→21:16)
[2020-04-20] MEDS: DOXYCYCLINE 100 MG TAB/CAP PO SCH ×2 (10:22→21:16)
[2020-04-20] MEDS: ENOXAPARIN SOD 80 MG/0.8ML SYRINGE SC SCH ×2 (10:22→21:16)
[2020-04-20] MEDS: CHOLECALCIFEROL (VITD3) 1,000UNIT=25mCg TAB PO SCH (10:22)
[2020-04-20] MEDS: FUROSEMIDE 40 MG TAB PO SCH (10:22)
[2020-04-20 13:30] VITALS: BP 121/63
[2020-04-20 16:00] VITALS: BP 139/78
[2020-04-20] MEDS: REMDESIVIR 100 MG in SODIUM CHL 0.9% 250 ML IV SCH (18:29)
[2020-04-21] VITALS: BP 127/82
[2020-04-21] MEDS: HYDROcodone-ACET 10/325MG TAB PO PRN ×2 (04:53→19:01)
[2020-04-21 05:50] LABS: Albumin 2.4 g/dL (3.4-5.0); Calcium 9.1 mg/dL (8.5-10.1); Potassium 4.8 mmol/L (3.5-5.1)
[2020-04-21 06:01] LABS: BUN/Creatinine Ratio 46.4; Bilirubin, Total 0.8 mg/dL (0.2-1.0); Total Protein 6.8 g/dL (6.4-8.2)
[2020-04-21] MEDS: IPRATROPIUM BROMIDE HFA AER IN SCH ×3 (06:28→21:06)
[2020-04-21 08:00] VITALS: BP 131/68
[2020-04-21] MEDS: POTASSIUM CHL 20 Meq TABLET PO SCH ×2 (09:20→21:05)
[2020-04-21] MEDS: DexAMETHasone SOD PHOS 10MG/1ML VIAL INJ IV SCH (09:20)
[2020-04-21] MEDS: ZINC SULFATE 220mg CAP or TAB PO SCH (09:20)
[2020-04-21] MEDS: cefTRIAXone 1GM/50ML D5W 50 ML IV SCH (09:20)
[2020-04-21] MEDS: DOXYCYCLINE 100 MG TAB/CAP PO SCH ×2 (09:21→21:05)
[2020-04-21] MEDS: ENOXAPARIN SOD 80 MG/0.8ML SYRINGE SC SCH ×2 (09:21→21:05)
[2020-04-21] MEDS: CHOLECALCIFEROL (VITD3) 1,000UNIT=25mCg TAB PO SCH (09:21)
[2020-04-21] MEDS: FUROSEMIDE 40 MG TAB PO SCH (09:22)
[2020-04-21] MEDS: BUDESONIDE (INHALATION) 180 MCG IH IN SCH ×2 (09:47→21:07)
[2020-04-21 10:51] LABS: Hematocrit 49.2 % (36.0-46.0); Hemoglobin 16.2 g/dL (12.2-16.2); Mean Corpuscular Volume 96.9 fL (80.0-100.0); Platelet Count (auto) 408 10^3/uL (140-450); Red Blood Cells 5.08 10^6/uL (4.0-5.20); Red Cell Distribution Width 13.8 % (11.8-14.3); White Blood Cell 14.8 10^3/uL (4.4-10.8)
[2020-04-21 11:25] LABS: Basophils % (manual) 0 (0.0-2.0); Blast Cells 0; Eosinophils % (manual) 0 (0-7); Metamyelocytes % 0; Promyelocytes % 0; Reactive Lymphocytes 0
[2020-04-21 13:11] LABS: Band Neutrophils % (manual) 19; Lymphocytes % (manual) 2 (10.0-50.0); Monocytes % (manual) 3 (0-12); Myelocytes % 2
[2020-04-21] MEDS: REMDESIVIR 100 MG in SODIUM CHL 0.9% 250 ML IV SCH (15:50)
[2020-04-21 16:00] VITALS: BP 135/83
[2020-04-21 23:33] VITALS: BP 147/77
[2020-04-22] MEDS: HYDROcodone-ACET 10/325MG TAB PO PRN ×2 (05:36→16:31)
[2020-04-22] MEDS: IPRATROPIUM BROMIDE HFA AER IN SCH ×3 (05:37→22:00)
[2020-04-22 07:02] LABS: Potassium 5.1 mmol/L (3.5-5.1)
[2020-04-22 07:18] LABS: Albumin 2.7 g/dL (3.4-5.0); BUN/Creatinine Ratio 40.5; Bilirubin, Total 0.9 mg/dL (0.2-1.0); Calcium 9.9 mg/dL (8.5-10.1)
[2020-04-22 08:00] VITALS: BP 137/77
[2020-04-22] MEDS: DexAMETHasone SOD PHOS 10MG/1ML VIAL INJ IV SCH (09:08)
[2020-04-22] MEDS: ZINC SULFATE 220mg CAP or TAB PO SCH (09:09)
[2020-04-22] MEDS: cefTRIAXone 1GM/50ML D5W 50 ML IV SCH (09:09)
[2020-04-22] MEDS: POTASSIUM CHL 20 Meq TABLET PO SCH ×2 (09:09→21:58)
[2020-04-22] MEDS: DOXYCYCLINE 100 MG TAB/CAP PO SCH ×2 (09:11→21:59)
[2020-04-22] MEDS: CHOLECALCIFEROL (VITD3) 1,000UNIT=25mCg TAB PO SCH (09:11)
[2020-04-22] MEDS: ENOXAPARIN SOD 80 MG/0.8ML SYRINGE SC SCH ×2 (09:11→21:59)
[2020-04-22] MEDS: FUROSEMIDE 40 MG TAB PO SCH (09:11)
[2020-04-22] MEDS: BUDESONIDE (INHALATION) 180 MCG IH IN SCH ×2 (09:55→21:58)
[2020-04-22 16:00] VITALS: BP 126/88
[2020-04-22] MEDS: REMDESIVIR 100 MG in SODIUM CHL 0.9% 250 ML IV SCH (16:20)
[2020-04-22 22:00] VITALS: BP 154/87
[2020-04-23] MEDS: HYDROcodone-ACET 10/325MG TAB PO PRN ×2 (02:40→16:34)
[2020-04-23] MEDS: IPRATROPIUM BROMIDE HFA AER IN SCH (06:40)
[2020-04-23 08:00] VITALS: BP_SYST 132; BP_SYST 142; BP_DIAS 77; BP_DIAS 92
[2020-04-23] MEDS: BUDESONIDE (INHALATION) 180 MCG IH IN SCH ×3 (09:44→22:11)
[2020-04-23] MEDS: LORazepam 0.5 MG TAB PO PRN ×2 (09:44→19:44)
[2020-04-23] MEDS: DexAMETHasone SOD PHOS 10MG/1ML VIAL INJ IV SCH (09:45)
[2020-04-23] MEDS: cefTRIAXone 1GM/50ML D5W 50 ML IV SCH (09:45)
[2020-04-23] MEDS: POTASSIUM CHL 20 Meq TABLET PO SCH ×2 (09:45→22:00)
[2020-04-23] MEDS: FUROSEMIDE 40 MG TAB PO SCH (09:45)
[2020-04-23] MEDS: ZINC SULFATE 220mg CAP or TAB PO SCH (09:45)
[2020-04-23] MEDS: CHOLECALCIFEROL (VITD3) 1,000UNIT=25mCg TAB PO SCH (09:46)
[2020-04-23] MEDS: DOXYCYCLINE 100 MG TAB/CAP PO SCH ×2 (09:46→22:04)
[2020-04-23] MEDS: ENOXAPARIN SOD 80 MG/0.8ML SYRINGE SC SCH ×2 (09:46→22:04)
[2020-04-23 16:00] VITALS: BP 136/85
[2020-04-24 00:29] VITALS: BP 126/65
[2020-04-24] MEDS: IPRATROPIUM BROMIDE HFA AER IN SCH ×3 (06:40→18:49)
[2020-04-24 07:28] LABS: Hematocrit 54.8 % (36.0-46.0); Hemoglobin 18.7 g/dL (12.2-16.2); Mean Corpuscular Hemoglobin 32.5 pg (28.0-32.0); Mean Corpuscular Hgb Conc. 34.1 g/dL (32.0-36.0); Mean Corpuscular Volume 95.2 fL (80.0-100.0); Platelet Count (auto) 453 10^3/uL (140-450); Red Blood Cells 5.76 10^6/uL (4.0-5.20); Red Cell Distribution Width 13.5 % (11.8-14.3); White Blood Cell 22.7 10^3/uL (4.4-10.8)
[2020-04-24 07:48] LABS: Band Neutrophils % (manual) 0; Basophils % (manual) 0 (0.0-2.0); Blast Cells 0; Eosinophils % (manual) 0 (0-7); Metamyelocytes % 0; Myelocytes % 0; Promyelocytes % 0; Reactive Lymphocytes 0
[2020-04-24 07:55] LABS: Potassium 4.7 mmol/L (3.5-5.1)
[2020-04-24 08:00] VITALS: BP 158/88
[2020-04-24 08:09] LABS: Albumin 2.6 g/dL (3.4-5.0); BUN/Creatinine Ratio 49.5; Calcium 9.5 mg/dL (8.5-10.1)
[2020-04-24 08:12] LABS: Bilirubin, Total 1.2 mg/dL (0.2-1.0); Total Protein 7.5 g/dL (6.4-8.2)
[2020-04-24 08:20] LABS: Lymphocytes % (manual) 5 (10.0-50.0); Monocytes % (manual) 6 (0-12)
[2020-04-24] MEDS: POTASSIUM CHL 20 Meq TABLET PO SCH (10:00)
[2020-04-24] MEDS: ZINC SULFATE 220mg CAP or TAB PO SCH (10:35)
[2020-04-24] MEDS: cefTRIAXone 1GM/50ML D5W 50 ML IV SCH (10:35)
[2020-04-24] MEDS: DexAMETHasone SOD PHOS 10MG/1ML VIAL INJ IV SCH (10:35)
[2020-04-24] MEDS: DOXYCYCLINE 100 MG TAB/CAP PO SCH ×2 (10:36→22:01)
[2020-04-24] MEDS: CHOLECALCIFEROL (VITD3) 1,000UNIT=25mCg TAB PO SCH (10:36)
[2020-04-24] MEDS: FUROSEMIDE 40 MG TAB PO SCH (10:36)
[2020-04-24] MEDS: ENOXAPARIN SOD 80 MG/0.8ML SYRINGE SC SCH ×2 (10:37→22:01)
[2020-04-24] MEDS: LORazepam 0.5 MG TAB PO PRN (12:54)
[2020-04-24] MEDS ORDERED: REMDESIVIR PER PHARMACY 0 ML IV SCH (13:45)
[2020-04-24] MEDS: ASCORBIC ACID 500 MG TAB PO SCH (14:15)
[2020-04-24 16:00] VITALS: BP 114/79
[2020-04-24] MEDS: BUDESONIDE (INHALATION) 180 MCG IH IN SCH (18:49)
[2020-04-24] MEDS: HYDROcodone-ACET 10/325MG TAB PO PRN (20:34)
[2020-04-25] VITALS: BP 106/69
[2020-04-25] MEDS: IPRATROPIUM BROMIDE HFA AER IN SCH ×3 (06:00→21:39)
[2020-04-25 08:00] VITALS: BP 153/77
[2020-04-25] MEDS: HYDROcodone-ACET 10/325MG TAB PO PRN ×2 (09:00→23:18)
[2020-04-25] MEDS: cefTRIAXone 1GM/50ML D5W 50 ML IV SCH (09:35)
[2020-04-25] MEDS: ZINC SULFATE 220mg CAP or TAB PO SCH (09:35)
[2020-04-25] MEDS: DexAMETHasone SOD PHOS 10MG/1ML VIAL INJ IV SCH (09:35)
[2020-04-25] MEDS: CHOLECALCIFEROL (VITD3) 1,000UNIT=25mCg TAB PO SCH (09:36)
[2020-04-25] MEDS: DOXYCYCLINE 100 MG TAB/CAP PO SCH ×2 (09:36→23:15)
[2020-04-25] MEDS: ASCORBIC ACID 500 MG TAB PO SCH (09:36)
[2020-04-25] MEDS: ENOXAPARIN SOD 80 MG/0.8ML SYRINGE SC SCH ×2 (09:37→23:15)
[2020-04-25] MEDS: BUDESONIDE (INHALATION) 180 MCG IH IN SCH ×2 (10:00→21:39)
[2020-04-25] MEDS: FUROSEMIDE 40 MG TAB PO SCH (10:37)
[2020-04-25] MEDS: LORazepam 0.5 MG TAB PO PRN (15:25)
[2020-04-25 16:00] VITALS: BP 124/79
[2020-04-26] VITALS: BP 125/78
[2020-04-26] MEDS: IPRATROPIUM BROMIDE HFA AER IN SCH ×3 (07:33→20:06)
[2020-04-26] MEDS: BUDESONIDE (INHALATION) 180 MCG IH IN SCH ×2 (07:33→20:07)
[2020-04-26 08:00] VITALS: BP 145/91
[2020-04-26] MEDS: HYDROcodone-ACET 10/325MG TAB PO PRN ×2 (08:55→16:34)
[2020-04-26] MEDS: DexAMETHasone SOD PHOS 10MG/1ML VIAL INJ IV SCH (09:52)
[2020-04-26] MEDS: cefTRIAXone 1GM/50ML D5W 50 ML IV SCH (09:52)
[2020-04-26] MEDS: levoFLOXacin 500MG 100 ML IV SCH (09:52)
[2020-04-26] MEDS: ZINC SULFATE 220mg CAP or TAB PO SCH (09:52)
[2020-04-26] MEDS: CHOLECALCIFEROL (VITD3) 1,000UNIT=25mCg TAB PO SCH (09:55)
[2020-04-26] MEDS: DOXYCYCLINE 100 MG TAB/CAP PO SCH (09:55)
[2020-04-26] MEDS: ENOXAPARIN SOD 80 MG/0.8ML SYRINGE SC SCH ×2 (09:55→23:37)
[2020-04-26] MEDS: FUROSEMIDE 40 MG TAB PO SCH (09:55)
[2020-04-26] MEDS: ASCORBIC ACID 500 MG TAB PO SCH (09:55)
[2020-04-26 14:26] LABS: Hematocrit 54.7 % (36.0-46.0)
[2020-04-26 14:27] LABS: Hemoglobin 18.4 g/dL (12.2-16.2); Mean Corpuscular Hemoglobin 32.3 pg (28.0-32.0); Mean Corpuscular Hgb Conc. 33.6 g/dL (32.0-36.0); Mean Corpuscular Volume 96.1 fL (80.0-100.0); Platelet Count (auto) 345 10^3/uL (140-450); Red Cell Distribution Width 13.9 % (11.8-14.3); White Blood Cell 23.1 10^3/uL (4.4-10.8)
[2020-04-26 14:35] LABS: Basophils % (manual) 0 (0.0-2.0); Blast Cells 0; Eosinophils % (manual) 0 (0-7); Metamyelocytes % 0; Myelocytes % 0; Promyelocytes % 0; Reactive Lymphocytes 0
[2020-04-26 14:44] LABS: Albumin 2.2 g/dL (3.4-5.0); Calcium 9.3 mg/dL (8.5-10.1)
[2020-04-26 14:47] LABS: BUN/Creatinine Ratio 45.7; Bilirubin, Total 0.8 mg/dL (0.2-1.0)
[2020-04-26 15:44] LABS: Band Neutrophils % (manual) 1; Lymphocytes % (manual) 2 (10.0-50.0); Monocytes % (manual) 2 (0-12)
[2020-04-26 16:00] VITALS: BP 138/108
[2020-04-26 16:45] VITALS: BP 132/96
[2020-04-26 20:06] VITALS: BP 132/108
[2020-04-27] VITALS: BP 134/92
[2020-04-27] MEDS: LORazepam 0.5 MG TAB PO PRN (04:06)
[2020-04-27] MEDS: BUDESONIDE (INHALATION) 180 MCG IH IN SCH ×2 (07:28→22:00)
[2020-04-27] MEDS: IPRATROPIUM BROMIDE HFA AER IN SCH ×3 (07:28→22:00)
[2020-04-27 08:00] VITALS: BP 132/97
[2020-04-27] MEDS: levoFLOXacin 500MG 100 ML IV SCH (10:07)
[2020-04-27] MEDS: FUROSEMIDE 40 MG TAB PO SCH (10:07)
[2020-04-27] MEDS: CHOLECALCIFEROL (VITD3) 1,000UNIT=25mCg TAB PO SCH (10:07)
[2020-04-27] MEDS: ENOXAPARIN SOD 80 MG/0.8ML SYRINGE SC SCH ×2 (10:07→21:47)
[2020-04-27] MEDS: DexAMETHasone SOD PHOS 10MG/1ML VIAL INJ IV SCH (10:07)
[2020-04-27] MEDS: ASCORBIC ACID 500 MG TAB PO SCH (10:07)
[2020-04-27] MEDS: ZINC SULFATE 220mg CAP or TAB PO SCH (10:07)
[2020-04-27 16:00] VITALS: BP 112/83
[2020-04-27] MEDS ORDERED: ALPRAZolam 0.25 MG TAB PO PRN (16:15)
[2020-04-27] MEDS ORDERED: LORazepam 0.5 MG TAB PO PRN ×2 (16:15→17:15)
[2020-04-27] MEDS: HYDROcodone-ACET 10/325MG TAB PO PRN (19:02)
[2020-04-27] MEDS ORDERED: ALPRAZolam 0.25 MG TAB PO SCH (21:00)
[2020-04-27] MEDS: ALPRAZolam 0.25 MG TAB PO SCH (21:47)
[2020-04-27 23:55] VITALS: BP 115/69
[2020-04-28] MEDS: ALPRAZolam 0.25 MG TAB PO SCH ×3 (06:00→21:31)
[2020-04-28 08:00] VITALS: BP 135/90
[2020-04-28] MEDS: HYDROcodone-ACET 10/325MG TAB PO PRN ×2 (09:51→20:10)
[2020-04-28] MEDS: ASCORBIC ACID 500 MG TAB PO SCH (09:52)
[2020-04-28] MEDS: FUROSEMIDE 40 MG TAB PO SCH (09:52)
[2020-04-28] MEDS: ZINC SULFATE 220mg CAP or TAB PO SCH (09:52)
[2020-04-28] MEDS: levoFLOXacin 500MG 100 ML IV SCH (09:53)
[2020-04-28] MEDS: DexAMETHasone SOD PHOS 10MG/1ML VIAL INJ IV SCH (09:53)
[2020-04-28] MEDS: ENOXAPARIN SOD 80 MG/0.8ML SYRINGE SC SCH ×2 (09:53→21:31)
[2020-04-28] MEDS: CHOLECALCIFEROL (VITD3) 1,000UNIT=25mCg TAB PO SCH (09:53)
[2020-04-28] MEDS: BUDESONIDE (INHALATION) 180 MCG IH IN SCH ×2 (10:00→18:31)
[2020-04-28 16:00] VITALS: BP 110/83
[2020-04-28 16:48] LABS: Eosinophils # (auto) 0 10 ^3/uL (0-0.8); Lymphocytes # (auto) 0.2 10 ^3/uL (0.4-5.4); Monocytes % (auto) 4.6 % (0.0-12.0)
[2020-04-28 16:55] LABS: Basophils # (auto) 0.2 10 ^3/uL (0-0.2); Basophils % (auto) 0.8 % (0.0-2.0); Eosinophils % (auto) 0.1 % (0.0-7.0); Hematocrit 54.9 % (36.0-46.0); Hemoglobin 18.3 g/dL (12.2-16.2); Lymphocytes % (auto) 0.8 % (10.0-50.0); Mean Corpuscular Hemoglobin 32.1 pg (28.0-32.0); Mean Corpuscular Hgb Conc. 33.4 g/dL (32.0-36.0); Mean Corpuscular Volume 96.2 fL (80.0-100.0); Neutrophils % (auto) 93.7 % (37.0-80.0); Nucleated Red Blood Cells % 0.2 %; Platelet Count (auto) 268 10^3/uL (140-450); Red Blood Cells 5.71 10^6/uL (4.0-5.20); Red Cell Distribution Width 13.6 % (11.8-14.3); White Blood Cell 22.4 10^3/uL (4.4-10.8)
[2020-04-28 17:01] LABS: Chloride 88 mmol/L (98-107); Potassium 4.6 mmol/L (3.5-5.1); Sodium 127 mmol/L (136-145)
[2020-04-28 17:15] LABS: Alanine Aminotransferase 74 U/L (13-56); Albumin 2.4 g/dL (3.4-5.0); Anion Gap 10 (5-15); Aspartate Aminotransferase 51 U/L (15-37); BUN/Creatinine Ratio 47.4; Blood Urea Nitrogen 55 mg/dL (7-18); Calcium 9.6 mg/dL (8.5-10.1); Carbon Dioxide 29 mmol/L (21-32); GFR African American 60 mL/min; GFR Non-African American 50 mL/min
[2020-04-28 17:18] LABS: Alkaline Phosphatase 125 U/L (45-117); Bilirubin, Total 1.2 mg/dL (0.2-1.0); Total Protein 6.7 g/dL (6.4-8.2)
[2020-04-28 17:52] LABS: Glucose 441 mg/dL (74-106)
[2020-04-28] MEDS: IPRATROPIUM BROMIDE HFA AER IN SCH (18:31)
[2020-04-29] VITALS: BP 128/87
[2020-04-29] MEDS: ALPRAZolam 0.25 MG TAB PO SCH ×3 (05:42→21:59)
[2020-04-29] MEDS: HYDROcodone-ACET 10/325MG TAB PO PRN ×2 (07:45→17:00)
[2020-04-29] MEDS: ENOXAPARIN SOD 80 MG/0.8ML SYRINGE SC SCH (09:25)
[2020-04-29] MEDS: CHOLECALCIFEROL (VITD3) 1,000UNIT=25mCg TAB PO SCH (09:25)
[2020-04-29] MEDS: ASCORBIC ACID 500 MG TAB PO SCH (09:26)
[2020-04-29] MEDS: ZINC SULFATE 220mg CAP or TAB PO SCH (09:29)
[2020-04-29] MEDS: DexAMETHasone SOD PHOS 10MG/1ML VIAL INJ IV SCH (09:30)
[2020-04-29] MEDS: BUDESONIDE (INHALATION) 180 MCG IH IN SCH ×3 (09:36→20:29)
[2020-04-29] MEDS: FUROSEMIDE 40 MG TAB PO SCH (09:37)
[2020-04-29] MEDS: levoFLOXacin 500MG 100 ML IV SCH (11:00)
[2020-04-29 16:00] VITALS: BP 118/71
[2020-04-29] MEDS ORDERED: ACETAMINOPHEN 325 MG TAB PO PRN (18:00)
[2020-04-29] MEDS: IPRATROPIUM BROMIDE HFA AER IN SCH ×2 (20:27→20:29)
[2020-04-30] VITALS: BP 120/93
[2020-04-30] MEDS: HYDROcodone-ACET 10/325MG TAB PO PRN ×2 (03:25→18:23)
[2020-04-30] MEDS: ALPRAZolam 0.25 MG TAB PO SCH ×3 (05:38→22:05)
[2020-04-30] MEDS: BUDESONIDE (INHALATION) 180 MCG IH IN SCH ×2 (07:17→22:06)
[2020-04-30] MEDS: IPRATROPIUM BROMIDE HFA AER IN SCH ×3 (07:17→22:06)
[2020-04-30 08:00] VITALS: BP 102/66
[2020-04-30] MEDS: ZINC SULFATE 220mg CAP or TAB PO SCH (10:34)
[2020-04-30] MEDS: CHOLECALCIFEROL (VITD3) 1,000UNIT=25mCg TAB PO SCH (10:34)
[2020-04-30] MEDS: ASCORBIC ACID 500 MG TAB PO SCH (10:34)
[2020-04-30] MEDS: DexAMETHasone SOD PHOS 10MG/1ML VIAL INJ IV SCH (10:34)
[2020-04-30] MEDS: FUROSEMIDE 40 MG TAB PO SCH (10:35)
[2020-04-30] MEDS: levoFLOXacin 500MG 100 ML IV SCH (10:37)
[2020-04-30 16:00] VITALS: BP 107/81
[2020-05-01 00:09] VITALS: BP 96/77
[2020-05-01] MEDS: ALPRAZolam 0.25 MG TAB PO SCH ×3 (05:54→21:21)
[2020-05-01] MEDS ORDERED: HYDROcodone-ACET 10/325MG TAB PO PRN (07:45)
[2020-05-01] MEDS: IPRATROPIUM BROMIDE HFA AER IN SCH ×2 (07:45→14:45)
[2020-05-01] MEDS: BUDESONIDE (INHALATION) 180 MCG IH IN SCH ×2 (07:45→21:23)
[2020-05-01 08:00] VITALS: BP 120/78
[2020-05-01] MEDS: levoFLOXacin 500MG 100 ML IV SCH (09:47)
[2020-05-01] MEDS: ASCORBIC ACID 500 MG TAB PO SCH (09:48)
[2020-05-01] MEDS: ZINC SULFATE 220mg CAP or TAB PO SCH (09:48)
[2020-05-01] MEDS: DexAMETHasone SOD PHOS 10MG/1ML VIAL INJ IV SCH (09:48)
[2020-05-01] MEDS: FUROSEMIDE 40 MG TAB PO SCH (09:49)
[2020-05-01] MEDS: CHOLECALCIFEROL (VITD3) 1,000UNIT=25mCg TAB PO SCH (09:49)
[2020-05-01] MEDS: HYDROcodone-ACET 10/325MG TAB PO PRN ×2 (15:24→23:00)
[2020-05-01] MEDS: DOCUSATE SOD 100 MG CAP PO PRN (17:52)
[2020-05-02] VITALS: BP 120/79
[2020-05-02] MEDS: IPRATROPIUM BROMIDE HFA AER IN SCH ×2 (06:00→22:00)
[2020-05-02] MEDS: BUDESONIDE (INHALATION) 180 MCG IH IN SCH ×2 (06:24→22:00)
[2020-05-02] MEDS: ALPRAZolam 0.25 MG TAB PO SCH ×3 (06:32→23:04)
[2020-05-02] MEDS: DOCUSATE SOD 100 MG CAP PO PRN (06:32)
[2020-05-02 08:00] VITALS: BP 126/64
[2020-05-02] MEDS: HYDROcodone-ACET 10/325MG TAB PO PRN ×2 (08:14→19:02)
[2020-05-02] MEDS: ASCORBIC ACID 500 MG TAB PO SCH (10:28)
[2020-05-02] MEDS: CHOLECALCIFEROL (VITD3) 1,000UNIT=25mCg TAB PO SCH (10:28)
[2020-05-02] MEDS: ZINC SULFATE 220mg CAP or TAB PO SCH (10:29)
[2020-05-02] MEDS: FUROSEMIDE 40 MG TAB PO SCH (10:29)
[2020-05-02] MEDS: DexAMETHasone SOD PHOS 10MG/1ML VIAL INJ IV SCH (10:29)
[2020-05-02] MEDS: levoFLOXacin 500MG 100 ML IV SCH (10:30)
[2020-05-02] MEDS ORDERED: DexAMETHasone SOD PHOS 4 MG/1ML SDV INJ IV SCH (15:30)
[2020-05-02 16:00] VITALS: BP 121/68
[2020-05-02 16:15] LABS: Basophils # (auto) 0 10 ^3/uL (0-0.2); Eosinophils # (auto) 0 10 ^3/uL (0-0.8); Eosinophils % (auto) 0.1 % (0.0-7.0); Hematocrit 51.5 % (36.0-46.0); Hemoglobin 17.2 g/dL (12.2-16.2); Lymphocytes # (auto) 0.2 10 ^3/uL (0.4-5.4); Lymphocytes % (auto) 1.1 % (10.0-50.0); Mean Corpuscular Hemoglobin 32.2 pg (28.0-32.0); Mean Corpuscular Hgb Conc. 33.4 g/dL (32.0-36.0); Mean Corpuscular Volume 96.4 fL (80.0-100.0); Monocytes # (auto) 0.9 10 ^3/uL (0-1.3); Monocytes % (auto) 4.2 % (0.0-12.0); Neutrophils # (auto) 19.9 10 ^3/uL (1.6-8.6); Neutrophils % (auto) 94.6 % (37.0-80.0); Nucleated Red Blood Cells % 0.4 %; Platelet Count (auto) 162 10^3/uL (140-450); Red Blood Cells 5.34 10^6/uL (4.0-5.20); Red Cell Distribution Width 13.9 % (11.8-14.3); White Blood Cell 21.1 10^3/uL (4.4-10.8)
[2020-05-02 16:29] LABS: Potassium 5.4 mmol/L (3.5-5.1)
[2020-05-02] MEDS ORDERED: LACTULOSE 20Gm/30ML SOLN PO PRN (16:45)
[2020-05-02] MEDS ORDERED: DEXTROSE (50%) 50ML SYRG IV PRN (17:30)
[2020-05-02] MEDS ORDERED: InsuLIN REG 1unit/0.01ml Soln (100units/ml) SC ONE (17:30)
[2020-05-02] MEDS: ACCU-CHEK COMFORT CURVE STRIP VI SCH (22:00)
[2020-05-02] MEDS: InsuLIN REG 1unit/0.01ml Soln (100units/ml) SC SCH (23:23)
[2020-05-03] VITALS (10 sets, daily range): BP systolic 85–134; BP diastolic 54–86
[2020-05-03] MEDS: ACCU-CHEK COMFORT CURVE STRIP VI SCH ×4 (06:26→20:39)
[2020-05-03] MEDS: ALPRAZolam 0.25 MG TAB PO SCH ×3 (06:26→20:39)
[2020-05-03] MEDS: InsuLIN REG 1unit/0.01ml Soln (100units/ml) SC SCH ×4 (06:27→20:45)
[2020-05-03] MEDS: BUDESONIDE (INHALATION) 180 MCG IH IN SCH ×2 (08:00→22:00)
[2020-05-03] MEDS: IPRATROPIUM BROMIDE HFA AER IN SCH ×2 (08:00→22:00)
[2020-05-03] MEDS: ASCORBIC ACID 500 MG TAB PO SCH (10:00)
[2020-05-03] MEDS: ZINC SULFATE 220mg CAP or TAB PO SCH (10:00)
[2020-05-03] MEDS: CHOLECALCIFEROL (VITD3) 1,000UNIT=25mCg TAB PO SCH (10:00)
[2020-05-03] MEDS: FUROSEMIDE 40 MG TAB PO SCH (10:00)
[2020-05-03] MEDS: levoFLOXacin 500MG 100 ML IV SCH (11:08)
[2020-05-03] MEDS: DexAMETHasone SOD PHOS 4 MG/1ML SDV INJ IV SCH (11:14)
[2020-05-03] MEDS ORDERED: VANCOMYCIN PER PHARMACY 0 MG IV SCH (12:15)
[2020-05-03] MEDS: AZTREONAM 1GM INJ 1 GM in D5W 5% 50 ML IV SCH ×2 (15:28→21:01)
[2020-05-03] MEDS: HYDROcodone-ACET 10/325MG TAB PO PRN (15:29)
[2020-05-03] MEDS: VANCOMYCIN 1GM/250ML 250 ML IV SCH (16:48)
[2020-05-03] MEDS ORDERED: ETOMIDATE (2MG/ML) 20ML VIAL IV ONE (18:10)
[2020-05-03] MEDS ORDERED: ROCURONIUM 10MG/ML 10ML VIAL IV ONE (18:10)
[2020-05-03] MEDS ORDERED: MIDAZOLAM DRIP 50 mg/50mL 50 ML IV ONE ×2 (18:26→18:27)
[2020-05-03] MEDS ORDERED: fentaNYL Drip 2500mCg/250mlNS 250 ML IV ONE (18:26)
[2020-05-03] MEDS: fentaNYL Drip 2500mCg/250mlNS 250 ML IV SCH (20:00)
[2020-05-03] MEDS: NOREPINEPHRINE 8 MG/250ML KIT 250 ML IV SCH (20:00)
[2020-05-03] MEDS: MIDAZOLAM DRIP 50 mg/50mL 50 ML IV SCH (20:00)
[2020-05-03] MEDS: TOFACITINIB CITRATE 5 MG PO SCH (20:38)
[2020-05-04] VITALS (73 sets, daily range): BP systolic 66–118; BP diastolic 32–81
[2020-05-04] MEDS: ALPRAZolam 0.25 MG TAB PO SCH ×3 (04:18→22:00)
[2020-05-04] MEDS: ACCU-CHEK COMFORT CURVE STRIP VI SCH ×4 (04:19→22:00)
[2020-05-04] MEDS: InsuLIN REG 1unit/0.01ml Soln (100units/ml) SC SCH ×4 (04:41→22:00)
[2020-05-04 05:05] LABS: Calcium 9.7 mg/dL (8.5-10.1); Magnesium 2.8 mg/dL (1.6-2.6)
[2020-05-04 05:08] LABS: BUN/Creatinine Ratio 42.9; Bilirubin, Total 2.2 mg/dL (0.2-1.0); Hematocrit 52.1 % (36.0-46.0); Hemoglobin 17.8 g/dL (12.2-16.2); Phosphorus 3.9 mg/dL (2.5-4.90); Red Cell Distribution Width 13.9 % (11.8-14.3)
[2020-05-04 05:10] LABS: Mean Corpuscular Hemoglobin 32.6 pg (28.0-32.0); Mean Corpuscular Hgb Conc. 34.2 g/dL (32.0-36.0); Mean Corpuscular Volume 95.5 fL (80.0-100.0); Platelet Count (auto) 117 10^3/uL (140-450); Red Blood Cells 5.46 10^6/uL (4.0-5.20); White Blood Cell 21.9 10^3/uL (4.4-10.8)
[2020-05-04 05:21] LABS: Basophils % (manual) 0 (0.0-2.0); Blast Cells 0; Eosinophils % (manual) 0 (0-7); Myelocytes % 0; Promyelocytes % 0; Reactive Lymphocytes 0
[2020-05-04 05:36] LABS: Potassium 5.8 mmol/L (3.5-5.1)
[2020-05-04] MEDS: AZTREONAM 1GM INJ 1 GM in D5W 5% 50 ML IV SCH ×3 (06:00→22:00)
[2020-05-04] MEDS ORDERED: SODIUM ZIRCONIUM CYCL 10 GM PAK PO ONE (06:00)
[2020-05-04 06:08] LABS: Band Neutrophils % (manual) 3; Lymphocytes % (manual) 1 (10.0-50.0); Metamyelocytes % 1; Monocytes % (manual) 3 (0-12)
[2020-05-04] MEDS: IPRATROPIUM BROMIDE HFA AER IN SCH ×2 (06:40→14:00)
[2020-05-04] MEDS: BUDESONIDE (INHALATION) 180 MCG IH IN SCH ×2 (06:40→10:00)
[2020-05-04] MEDS: NOREPINEPHRINE 8 MG/250ML KIT 250 ML IV SCH (07:50)
[2020-05-04] MEDS: FUROSEMIDE 40 MG TAB PO SCH (10:00)
[2020-05-04] MEDS: CHOLECALCIFEROL (VITD3) 1,000UNIT=25mCg TAB PO SCH (10:00)
[2020-05-04] MEDS: TOFACITINIB CITRATE 5 MG PO SCH ×2 (10:00→22:00)
[2020-05-04] MEDS: ZINC SULFATE 220mg CAP or TAB PO SCH (10:00)
[2020-05-04] MEDS: ASCORBIC ACID 500 MG TAB PO SCH (10:00)
[2020-05-04] MEDS: DexAMETHasone SOD PHOS 4 MG/1ML SDV INJ IV SCH (10:00)
[2020-05-04] MEDS: VANCOMYCIN 1GM/250ML 250 ML IV SCH (14:39)
[2020-05-05] VITALS (48 sets, daily range): BP systolic 0–130; BP diastolic 0–83
[2020-05-05] MEDS ORDERED: FUROSEMIDE 40 MG/4 ML VIAL IV ONE (01:15)
[2020-05-05] MEDS ORDERED: InsuLIN REG 1unit/0.01ml Soln (100units/ml) IV ONE (01:15)
[2020-05-05] MEDS ORDERED: SODIUM CHLORIDE 0.9% 500 ML IV ONE ×2 (01:15→14:00)
[2020-05-05] MEDS ORDERED: SODIUM ZIRCONIUM CYCL 10 GM PAK PO ONE ×3 (01:15→14:00)
[2020-05-05] MEDS: AZTREONAM 1GM INJ 1 GM in D5W 5% 50 ML IV SCH ×2 (06:00→13:20)
[2020-05-05] MEDS: ALPRAZolam 0.25 MG TAB PO SCH ×2 (06:25→14:23)
[2020-05-05] MEDS: ACCU-CHEK COMFORT CURVE STRIP VI SCH ×3 (06:25→17:00)
[2020-05-05] MEDS: InsuLIN REG 1unit/0.01ml Soln (100units/ml) SC SCH ×3 (06:26→18:52)
[2020-05-05] MEDS: IPRATROPIUM BROMIDE HFA AER IN SCH (09:20)
[2020-05-05] MEDS: DexAMETHasone SOD PHOS 4 MG/1ML SDV INJ IV SCH (09:55)
[2020-05-05] MEDS: MIDAZOLAM DRIP 50 mg/50mL 50 ML IV SCH (09:55)
[2020-05-05] MEDS: TOFACITINIB CITRATE 5 MG PO SCH (09:55)
[2020-05-05] MEDS: FUROSEMIDE 40 MG TAB PO SCH (09:56)
[2020-05-05] MEDS: ZINC SULFATE 220mg CAP or TAB PO SCH (09:56)
[2020-05-05] MEDS: CHOLECALCIFEROL (VITD3) 1,000UNIT=25mCg TAB PO SCH (09:57)
[2020-05-05] MEDS: ASCORBIC ACID 500 MG TAB PO SCH (09:57)
[2020-05-05] MEDS: BUDESONIDE (INHALATION) 180 MCG IH IN SCH (10:00)
[2020-05-05] MEDS: NOREPINEPHRINE 8 MG/250ML KIT 250 ML IV SCH (10:13)
[2020-05-05 10:44] LABS: INR 1.42 (0.9-1.15); Partial Thromboplastin Time 26.6 sec (23.0-31.2)
[2020-05-05] MEDS ORDERED: ACETYLCYSTEINE 20%(200MG/ML) SOL 4ML NEB SCH (14:00)
[2020-05-05] MEDS ORDERED: VASOPRESSIN 20 UNIT/ML ONE (14:38)
[2020-05-05] MEDS ORDERED: PHENYLEPHRINE IV 250 ML IV ONE (14:41)
[2020-05-05] MEDS ORDERED: VASOPRESSIN 50 UNITS in D5W 5% 247.5 ML IV SCH (15:30)
[2020-05-05] MEDS ORDERED: PHENYLEPHRINE IV 250 ML IV SCH (15:30)
[2020-05-05] MEDS: fentaNYL Drip 2500mCg/250mlNS 250 ML IV SCH (15:37)
[2020-05-05] MEDS: VANCOMYCIN 1GM/250ML 250 ML IV SCH (15:58)
[2020-05-05] MEDS ORDERED: IPRATROPIUM BROM 0.5 MG/2.5ML INH SOL NEB SCH (18:00)
[2020-05-05] MEDS ORDERED: EPINEPHrine HCL 250 ML IV ONE (18:23)
[2020-05-05] MEDS ORDERED: EPINEPHrine HCL 250 ML IV SCH (18:45)
[2020-05-05] MEDS ORDERED: SODIUM CHLOR 0.9% PF (SALINE LOCK) 10ML VIAL/SYR IV SCH (22:00)
[2020-05-07] MEDS ORDERED: VANCOMYCIN 1GM/250ML 250 ML IV SCH (15:00)
== END 2020-05-06 01:40 | DRG 208 ==
LOC: ER 16:04 → OVERFLOW 16:05 → TELE-WESTW 04-20 15:53 → ICU WEST 05-03 18:24
PROVIDERS: ADMIT Internal Medicine Cardiovascular Disease; ATTEND Internal Medicine Cardiovascular Disease
PROC: XW033E5 Introduction of Remdesivir Anti-infective into Peripheral Vein, Percutaneous Approach, New Technology Group 5 (ICD-10-PCS; 2020-04-17)
PROC: 5A09357 Assistance with Respiratory Ventilation, Less than 24 Consecutive Hours, Continuous Positive Airway Pressure (ICD-10-PCS; 2020-04-28)
PROC: 5A09357 Assistance with Respiratory Ventilation, Less than 24 Consecutive Hours, Continuous Positive Airway Pressure (ICD-10-PCS; 2020-05-02)
PROC: 5A1945Z Respiratory Ventilation, 24-96 Consecutive Hours (ICD-10-PCS; principal; 2020-05-03)
PROC: 0BH17EZ Insertion of Endotracheal Airway into Trachea, Via Natural or Artificial Opening (ICD-10-PCS; 2020-05-03)
PROC: 0W9930Z Drainage of Right Pleural Cavity with Drainage Device, Percutaneous Approach (ICD-10-PCS; 2020-05-03)
PROC: 5A09357 Assistance with Respiratory Ventilation, Less than 24 Consecutive Hours, Continuous Positive Airway Pressure (ICD-10-PCS; 2020-05-03)
DX: U07.1 COVID-19 (principal); J96.01 Acute respiratory failure with hypoxia; J12.82 Pneumonia due to coronavirus disease 2019; J44.0 Chronic obstructive pulmonary disease with (acute) lower respiratory infection; E87.4 Mixed disorder of acid-base balance; Z68.41 Body mass index [BMI] 40.0-44.9, adult; J93.9 Pneumothorax, unspecified; E11.9 Type 2 diabetes mellitus without complications; M06.9 Rheumatoid arthritis, unspecified; E78.5 Hyperlipidemia, unspecified; G89.29 Other chronic pain; E66.9 Obesity, unspecified; E66.01 Morbid (severe) obesity due to excess calories; Z88.0 Allergy status to penicillin; Z88.2 Allergy status to sulfonamides; Z88.8 Allergy status to other drugs, medicaments and biological substances; Z66 Do not resuscitate; Z82.49 Family history of ischemic heart disease and other diseases of the circulatory system; Z83.3 Family history of diabetes mellitus; I10 Essential (primary) hypertension
CPT/HCPCS: 36415; 36569; 36600; 71045; 71275; 80048; 80053; 80202; 81001; 82565; 82805; 82962; 83605; 83735; 83880; 84100; 84132; 84484; 85007; 85025; 85027; 85379; 85610; 85730; 86850; 86900; 86901; 87040; 87070; 87077; 87186; 87205; 87426; 93005; 94003; 94640; 94660; 96365; 96366; 96375; 99291; G0378; J0171; J0696; J1100; J1815; J1956; J2250; J3490; J7060